=== PATIENT | male | born 1955 | race Caucasian/White ===

== ENCOUNTER → 2017-11-06 09:22 | Day surgery (SDC) | payer OTHER ==
[~2017-11-06 09:22] MED LIST: Onabotulinimtoxina 100 UNITS* VIAL ONE
--- NOTE | 2017-11-07 03:35 | OP ---
DATE OF OPERATION: 11/06/17 - [facility] DATE OF : 59 SURGEON: Charlie Zarate MD ANESTHESIA: Local anesthesia. 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 OPERATIVE PROCEDURE: EMG-guided Botox injections into the right vocal cord. COMPLICATIONS: None. DISPOSITION: Good. SPECIMEN: None. BLOOD LOSS: None. DESCRIPTION OF PROCEDURE: The patient was treated in the local room in Same Day surgery. 7.5 units of Botox were loaded into the the EMG guided Botox needle. His laryngeal structures were demarcated. Injection site was demarcated and injected with 1% lidocaine. His head was hyperextended. The needle was placed through the skin through the cricothyroid membrane superolaterally into the right true vocal cord and with proper EMG potentials with the phonation of , the 7.5 units of Botox was injected. The patient tolerated the procedure well, no complications. [id number] #: [id number] [facility]
== END | disposition home or self-care (01) ==
LOC: OR 09:22
PROVIDERS: ATTEND Otolaryngology
DX: J38.5 Laryngeal spasm (principal); J38.7 Other diseases of larynx; F17.290 Nicotine dependence, other tobacco product, uncomplicated
CPT/HCPCS: J0585

== ENCOUNTER → 2019-03-25 07:31 | Day surgery (SDC) | payer OTHER ==
--- NOTE | 2019-03-25 21:56 | PRO ---
DATE OF PROCEDURE: 03/25/19 - [facility] DATE OF : 59 ANESTHESIA: No anesthesia. OPERATIVE PROCEDURE: EMG guided Botox injection with 7.5 units of Botox on the right true vocal cord. The EMG was used. DIAGNOSIS: Spasmodic dysphonia. DESCRIPTION OF PROCEDURE: The patient was in the local room, connected to the EMG with the return ground electrodes. His cricothyroid membrane was palpated and his cricoid in midline were demarcated. The needle was inserted through the skin. EMG was turned down through the cricothyroid membrane superolaterally into the right true vocal cord and 7.5 units of Botox were injected when I heard the proper muscle unit potentials. The patient tolerated the procedure well. [id number] #: [id number] [facility]
== END | disposition home or self-care (01) ==
LOC: OR 07:31
PROVIDERS: ATTEND Otolaryngology
DX: J38.3 Other diseases of vocal cords (principal); J38.7 Other diseases of larynx; R06.2 Wheezing; Z87.891 Personal history of nicotine dependence; I10 Essential (primary) hypertension; K21.9 Gastro-esophageal reflux disease without esophagitis; E78.00 Pure hypercholesterolemia, unspecified; F41.9 Anxiety disorder, unspecified; M10.9 Gout, unspecified
CPT/HCPCS: 95873; J0585

== ENCOUNTER 2019-12-29 06:12 | Day surgery (SDC) | payer OTHER ==
[~2019-12-29 06:12] MED LIST changes: +Buffered Lidocaine 1% SYRIN* 1 ML/SYRINGE INTRADERM ONE; +Dexamethasone TAB* 4 MG PO ONE; +Famotidine IV* 10 MG/ML 2 ML (20 mg) IV ONE; +Lactated Ringers 1000 ML Bag* 1,000 ML IV SCH; -Onabotulinimtoxina 100 UNITS* VIAL ONE; +Ondansetron ODT TAB* 4 MG PO ONE
[2019-12-29] MEDS ORDERED: Dexamethasone TAB* 4 MG ONE (06:18)
[2019-12-29] MEDS ORDERED: ceFAZolin 2 GM PREMIX in ORs 2 GM/50 ML BAG ONE (06:18)
[2019-12-29] MEDS ORDERED: Famotidine IV* 10 MG/ML 2 ML (20 mg) ONE (06:18)
[2019-12-29] MEDS ORDERED: Ondansetron ODT TAB* 4 MG ONE (06:18)
[2019-12-29] MEDS ORDERED: oxyCODONE TAB* 5 MG TAB PO PRN (06:35)
[2019-12-29] MEDS ORDERED: PROCHLORPERAZINE INJ 5 MG/ML 2 ML VIAL IV PRN (06:35)
[2019-12-29] MEDS ORDERED: fentaNYL* 50 MCG/ML 2 ML VIAL (100 MCG VIAL) IV PRN (06:35)
[2019-12-29] MEDS ORDERED: Acetaminophen TAB* 325 MG PO PRN (06:35)
[2019-12-29] MEDS ORDERED: DiMENhydriNATE IV* 50 MG/ML VIAL IV PUSH PRN (06:35)
[2019-12-29] MEDS ORDERED: Naloxone* 0.4 MG/ML 1 ML VIAL IV PRN (06:35)
[2019-12-29] MEDS ORDERED: Tetracaine 0.5% OPTH.SOL 4 ML* 1 DROP BTL ONE (07:13)
[2019-12-29] MEDS ORDERED: Artificial Tear OPHTH.OINT* 3.5 GM ONE (07:13)
[2019-12-29] MEDS ORDERED: Lidocaine 1% INJ* 10 MG/ML 30 ML SDV ONE (07:14)
[2019-12-29] MEDS ORDERED: Mineral Oil Sterile, TOPICAL* 25 ML BTL ONE (07:14)
[2019-12-29] MEDS ORDERED: BSS OPTH.SOL* BTL ONE (07:15)
[2019-12-29] MEDS ORDERED: fentaNYL* 50 MCG/ML 2 ML VIAL (100 MCG VIAL) ONE (07:21)
[2019-12-29] MEDS ORDERED: Midazolam* 1 MG/ML 5 ML VIAL (5 MG) ONE (07:21)
[2019-12-29] MEDS ORDERED: KETAMINE HCL* 50 MG/ML 10 ML VIAL ONE (07:22)
[2019-12-29] MEDS ORDERED: Lidocaine 1% w EPI 1:100,000* MDV 20 ML VIAL ONE (07:42)
[2019-12-29] MEDS ORDERED: Lidocaine 2% PF * 5 ML VIAL ONE (07:54)
[2019-12-29] MEDS ORDERED: Propofol* 10 MG/ML 20 ML BTL ONE (07:54)
[2019-12-29] MEDS ORDERED: Labetalol IV* 5 MG/ML 20 ML VIAL ONE (07:55)
[2019-12-29 08:35] VITALS: BP 121/82
== END 2019-12-29 08:57 | disposition home or self-care (01) ==
LOC: OR 06:12
PROVIDERS: ATTEND Plastic Surgery
DX: L72.8 Other follicular cysts of the skin and subcutaneous tissue (principal); I10 Essential (primary) hypertension; J44.9 Chronic obstructive pulmonary disease, unspecified; Z87.891 Personal history of nicotine dependence; M10.9 Gout, unspecified; F41.9 Anxiety disorder, unspecified
CPT/HCPCS: 88304; A9270-GY; J0690; J2250; J2704; J3010; J8540